=== PATIENT | female | born 1965 | race Caucasian/White ===

== ENCOUNTER → 2016-07-13 | Outpatient (CLI) | payer BC, OTHER ==
[~2016-07-13] MED LIST: EST1 PO; HYDR-5688 PO; OMEG10007 PO; POLYSOL4 OP; PRAV20TA PO; TIZA2CAP PO
[2016-07-13 13:57] LABS: ALT/SGPT 21 U/L (12-78); BLOOD UREA NITROGEN 11 mg/dl (7-18); BUN/CREATININE RATIO 14.5 (10-20); CALCIUM 8.9 mg/dl (8.5-10.1); CARBON DIOXIDE 27 mmol/L (21-32); CHLORIDE 106 mmol/L (98-107); CREATININE 0.73 mg/dl (0.60-1.20); GLUCOSE 77 mg/dl (70-99); POTASSIUM 3.8 mmol/L (3.5-5.1); SODIUM 141 mmol/L (136-145)
[2016-07-13 14:00] LABS: CHOLESTEROL 198 mg/dl (0-200); CHOLESTEROL/HDL RATIO 2.6; HDL CHOLESTEROL 75 mg/dl; LDL CHOLESTEROL CALCULATED 113 mg/dl; TRIGLYCERIDES 52 mg/dl (0-150); VERY LOW DENSITY LIPOPROT CALC 10 mg/dl
== END | disposition home or self-care (01) ==
LOC: C.LABMFLN 07:46
PROVIDERS: ATTEND Family Medicine
DX: E78.5 Hyperlipidemia, unspecified (principal)

== ENCOUNTER 2016-11-13 10:57 | Day surgery (SDC) | payer BC, OTHER ==
[2016-10-14 09:11] VITALS: BMI 27.0
--- NOTE | 2016-10-14 09:38 | PAT Medication Instructions ---
Service Date Oct 14, 2016. Current Home Medication List Estradiol (Estradiol), 1 MG PO QAM Hydrocodone/Acetaminophen 5MG/325MG ([place] 5MG/325MG), 1 TABLET PO q4-6h PRN for Pain Polyethylene Glycol-Propylene (Systane), 1 DROPS OP QID PRN for EYE Pravastatin (Pravachol ), 20 MG PO HS Medication Instructions For Your Scheduled Surgery - Check with surgeon for instructions: Estradiol (Estradiol), 1 MG PO QAM - Take the following medications the morning of surgery with a sip of water: Polyethylene Glycol-Propylene (Systane), 1 DROPS OP QID PRN for EYE (if needed) Hydrocodone/Acetaminophen 5MG/325MG ([place] 5MG/325MG), 1 TABLET PO q4-6h PRN for Pain (okay to take up to 4 hours prior to surgery if needed) - Take the following medications as scheduled the night before surgery: Pravastatin (Pravachol ), 20 MG PO HS Polyethylene Glycol-Propylene (Systane), 1 DROPS OP QID PRN for EYE (if needed) Hydrocodone/Acetaminophen 5MG/325MG ([place] 5MG/325MG), 1 TABLET PO q4-6h PRN for Pain (if needed) If you have any questions please call us at [phone] or [phone] or [phone]
[2016-10-14 10:04] LABS: BASO % 0.1 %; BASO ABS # 0.01 K/uL (0-0.2); COMPLETE YES; EOS % 2.1 %; HEMATOCRIT 42.5 % (37-47); IG% 0.3 %; LYMPH % 24.9 %; LYMPH ABS # 1.69 K/uL (1.2-3.4); MEAN CELL VOLUME 90.8 fL (80-100); MEAN CORPUSCULAR HEMOGLOBIN 30.3 pg (25-34); MEAN CORPUSCULAR HGB CONC 33.4 g/dl (32-36); MEAN PLATELET VOLUME 9.6 fL (7.4-10.4); NEUT % 62.6 %; PLATELET COUNT 191 K/uL (130-400); RED BLOOD COUNT 4.68 M/uL (4.2-5.4)
[2016-10-14 10:06] LABS: URINE APPEARANCE CLEAR (CLEAR); URINE BILIRUBIN NEG (NEG); URINE COLOR YELLOW; URINE NITRITE NEG (NEG); URINE PH 5.5 (4.5-7.5); URINE SPECIFIC GRAVITY 1.015 (1.000-1.030); UROBILINOGEN NEG (NEG)
[2016-10-14 10:07] LABS: MANUAL MICROSCOPIC REQUIRED? NO; REVIEW REQ? NO
[2016-10-14 11:06] LABS: BUN/CREATININE RATIO 17.3 (10-20); CALCIUM 8.9 mg/dl (8.5-10.1); CREATININE 0.72 mg/dl (0.60-1.20)
[~2016-11-13] VITALS: Ht 162.6 cm; Wt 73.2 kg
[~2016-11-13 10:57] MED LIST changes: +CEFAZOLIN 1000MG/55 ML D5W IV SCH; +LACTATED RINGER'S 1000ML 1,000 ML IV SCH; -OMEG10007 PO; -TIZA2CAP PO
[2016-11-13 11:25] VITALS: BP 113/67; PULSE 70; TEMP 36.5; O2SAT 100; Ht 162.6 cm; Wt 73.2 kg
[2016-11-13] MEDS ORDERED: NURSING VERBAL MED ORDER ONE ×2 (11:50→14:30)
[2016-11-13] MEDS ORDERED: SCOPOLAMINE 1.5 MG TDSY TD ONE (11:57)
[2016-11-13] MEDS ORDERED: ATROPINE SULFATE 0.1 MG/ML 5ML SYR IV PRN (12:15)
[2016-11-13] MEDS ORDERED: FENTANYL CITRATE INJ 50 MCG/1 ML 2 ML VIAL IV PRN (12:15)
[2016-11-13] MEDS ORDERED: ONDANSETRON INJ 2 MG/ML 2 ML VIAL IV PRN (12:15)
[2016-11-13] MEDS ORDERED: EpHEDrine SULFATE INJ 50 MG/ML AMP IV PRN (12:15)
[2016-11-13] MEDS ORDERED: MIDAZOLAM HCL 1 MG/ML 2ML VIAL ONE (12:39)
--- NOTE | 2016-11-13 12:48 | History & Physical Bridge Note ---
H&P Re-Evaluation Bridge Note: I have examined the patient, reviewed the History & Physical and in the interval since the performance of the History & Physical I have noted the following changes of clinical significance: No changes noted
--- NOTE | 2016-11-13 12:49 | History and Physical ---
History & Physical Date Nov 13, 2016. Chief Complaint Chronic back pain History of Present Illness The patient is a 51 year old female with complaints of Additional History Hepatic Disease: No Endocrine Disorder: No Kidney Disease: No Hypertension: No Heart Disease: No Bleeding Tendencies: No Infectious Diseases: No Allergies Coded Allergies: Aspirin (Verified Allergy, Intermediate, BLEEDING, 11/13/16) Baclofen (Verified Allergy, Mild, MIGRAINES, 11/13/16) Morphine (Verified Adverse Reaction, Severe, HALLUCINATIONS AND INCREASED BLOOD PRESSURE, 11/13/16) "IT JUST MAKES ME VERY, VERY SICK" Egg (Verified Adverse Reaction, Mild, vomitting, 11/13/16) Fentanyl (Verified Adverse Reaction, Mild, BLOOD PRESSURE DROPPED, 11/13/16) Tramadol (Verified Adverse Reaction, Unknown, TACHY,LOW B/P, 11/13/16) Home Medications Scheduled Estradiol (Estradiol), 1 MG PO QAM Pravastatin (Pravachol ), 20 MG PO HS Scheduled PRN Hydrocodone/Acetaminophen 5MG/325MG ([place] 5MG/325MG), 1 TABLET PO q4-6h PRN for Pain Polyethylene Glycol-Propylene (Systane), 1 DROPS OP QID PRN for EYE Physical Examination Skin: warm/dry, no rash Eyes: normal inspection, EOMI, sclerae normal ENT: normal ENT inspection, pharynx normal Head: normocephalic, atraumatic Neck: supple, no adenopathy, trachea midline Respiratory/Chest: lungs clear, normal breath sounds, no respiratory distress Cardiovascular: regular rate, rhythm, no edema, no murmur Abdomen / GI: normal bowel sounds, non tender Back: normal inspection Extremities: normal inspection, normal range of motion Neurologic/Psych: no motor/sensory deficits, alert, normal reflexes, oriented x 3 Diagnosis Chronic back pain Plan of Treatment Dorsal column stimulator battery replacement
[2016-11-13] MEDS ORDERED: FENTANYL CITRATE INJ 50 MCG/1 ML 2 ML VIAL ONE ×2 (13:22→13:48)
[2016-11-13] MEDS ORDERED: BUPIVACAINE/EPINEPHRINE 0.5% MPF 1:200,000 10 ML VIAL ONE (13:23)
[2016-11-13] MEDS ORDERED: BACITRACIN 50000 UNIT VIAL ONE (13:24)
[2016-11-13] MEDS ORDERED: HYDROmorphone INJ 2 MG/ML SYR/VIAL ONE (13:48)
[2016-11-13] MEDS ORDERED: DEXAMETHASONE SOD INJ 4 MG/ML VIAL ONE (14:05)
[2016-11-13] MEDS ORDERED: ONDANSETRON INJ 2 MG/ML 2 ML VIAL ONE (14:05)
[2016-11-13] MEDS ORDERED: LIDOCAINE HCL 2% 2 ML VIAL (20MG/ML) ONE (14:05)
[2016-11-13] MEDS ORDERED: GLYCOPYRROLATE INJ 0.2 MG/ML VIAL ONE (14:05)
[2016-11-13] MEDS ORDERED: HYDR-5688 PO (14:06)
[2016-11-13] MEDS ORDERED: ROCURONIUM BROMIDE 10 MG/ML 5 ML VIAL ONE (14:06)
[2016-11-13] MEDS ORDERED: NEOSTIGMINE METHYLSULFATE 1 MG/ML 10ML VIAL ONE (14:06)
[2016-11-13] MEDS ORDERED: PROPOFOL IV EMULSION 10 MG/ML 20 ML VIAL IV ONE (14:06)
[2016-11-13] MEDS ORDERED: KETOROLAC TROMETHAMINE 30 MG/ML VIAL ONE (14:06)
--- NOTE | 2016-11-13 14:07 | Discharge Instructions ---
Discharge Instructions Date of Service Nov 13, 2016. Admission Reason for Admission: Sacrolitis Discharge Discharge Diagnosis / Problem: chronic back pain Discharge Goals Goal(s): Improve function Activity Recommendations Activity Limitations: per Instructions/Follow-up section Lifting Limitations: no more than 10 pounds Exercise/Sports Limitations: gradually increase as tolerated Shower/Bathe: may shower/bathe in 3 days . Instructions / Follow-Up Instructions / Follow-Up Follow-up in office in 2 weeks for postoperative incision evaluation. A shower postop day 2 or 3. May remove dressing to shower. Current Hospital Diet Patient's current hospital diet: Discharge Diet Recommended Diet: Regular Diet Procedures Procedures Performed: Dorsal column stimulator battery replacement Pending Studies Studies pending at discharge: no Medical Emergencies . Who to Call and When: Medical Emergencies: If at any time you feel your situation is an emergency, please call 911 immediately. . Non-Emergent Contact Non-Emergency issues call your: Primary Care Provider . "Provider Documentation" section prepared by Kehinde Farrar. . VTE Core Measure Inpt VTE Proph given/why not?: Matheus Khan, SCD's
[2016-11-13] MEDS ORDERED: OXYCODONE HCL IR 5 MG TAB (IMMEDIATE RELEASE) PO PRN (14:15)
[2016-11-13] MEDS ORDERED: ACETAMINOPHEN 325 MG TAB PO PRN (14:15)
[2016-11-13] MEDS ORDERED: HYDROmorphone INJ 1 MG/ML SYR IV PRN (14:15)
[2016-11-13] MEDS ORDERED: MEPERIDINE HCL 25 MG/ML CARP ONE (14:33)
--- NOTE | 2016-11-13 14:33 | [facility] Operative Report ---
Operative Report Operative Date Nov 13, 2016. Pre-Operative Diagnosis Chronic Back Pain Post-Operative Diagnosis Chronic Back Pain Procedure(s) Performed Dorsal column stimulator battery replacement Surgeon Dr. Farrar Living Specialist Surgeon(s) Jesus Jimenez PA-C Estimated Blood Loss 5 cc Findings None Specimens A: explanted stimulator battery Description of Procedure Patient was met with preoperatively case discussed all questions were addressed. That point patient was taken back to the operative suite after undergoing successful intubation placed in a prone position. The lumbar spine was then prepped and draped nostril fashion. Utilizing the previous incision site for the right sided battery. Sharp dissection was performed onto an exposing the battery. It was removed without difficulty. The leads were detached new battery attached and then tested for adequate function. Once this was established. The battery was reinserted into the pocket incision was closed with subcutaneous Vicryl and Monocryl for final skin closure. Steri- Strips sterile dressing was placed. Patient awakened and taken to PACU in stable condition. Please note Alfonzo record was present throughout the entire procedure involved in patient positioning and final skin closure. I attest to the content of the Intraoperative Record and any orders documented therein. Any exceptions are noted below.
--- NOTE | 2016-11-13 15:06 | Anesthesiology Progress Note ---
Anesthesia Post Op Note Date & Time Nov 13, 2016 at 15:06 Vital Signs Pain Intensity: 0 Vital Signs Past 12 Hours Date Time Temp Pulse Resp B/P (MAP) Pulse Ox O2 Delivery O2 Flow Rate FiO2 11/13/16 15:00 37.2 11/13/16 14:53 78 16 11/13/16 14:53 79 16 98 11/13/16 14:48 95 16 97 11/13/16 14:48 97 16 11/13/16 14:45 118/58 11/13/16 14:43 97 16 11/13/16 14:43 99 16 99 11/13/16 14:42 78 16 11/13/16 14:42 78 16 99 11/13/16 14:41 122/69 11/13/16 14:37 98 16 11/13/16 14:37 98 16 99 11/13/16 14:35 114/64 11/13/16 14:32 103 20 95 11/13/16 14:32 100 20 11/13/16 14:31 105/70 11/13/16 14:29 120/75 11/13/16 14:27 101 20 100 11/13/16 14:27 99 20 11/13/16 14:23 108/77 11/13/16 14:22 36.9 96 14 108/77 100 Mask 10 11/13/16 14:22 97 17 100 11/13/16 14:22 97 17 11/13/16 11:25 36.5 70 18 113/67 (82) 100 Room Air Notes Mental Status: alert / awake / arousable, participated in evaluation Pt Amnestic to Procedure: Yes Nausea / Vomiting: adequately controlled Pain: adequately controlled Airway Patency, RR, SpO2: stable & adequate BP & HR: stable & adequate Hydration State: stable & adequate Anesthetic Complications: no major complications apparent
[2016-11-13 15:15] VITALS: BP 119/52; PULSE 66; TEMP 36.4; O2SAT 100
[2016-11-13 15:45] VITALS: BP 99/60; PULSE 72; O2SAT 100
[2016-11-13 16:20] VITALS: BP 108/69; PULSE 89; TEMP 36.6; O2SAT 100
== END 2016-11-13 16:30 | disposition home or self-care (01) ==
LOC: C.ACU 10:57
PROVIDERS: ATTEND Orthopaedic Surgery Orthopaedic Surgery of the Spine
DX: G89.29 Other chronic pain (principal); M54.9 Dorsalgia, unspecified

== ENCOUNTER → 2016-12-16 | Outpatient (CLI) | payer BC, OTHER ==
[~2016-12-16] VITALS: Ht 162.6 cm; Wt 75.0 kg
[~2016-12-16] MED LIST changes: -CEFAZOLIN 1000MG/55 ML D5W IV SCH; -LACTATED RINGER'S 1000ML 1,000 ML IV SCH
[2016-12-16 11:49] VITALS: Ht 162.6 cm; Wt 75.0 kg
--- NOTE | 2016-12-16 12:21 | PAT Medication Instructions ---
Service Date Dec 16, 2016. Current Home Medication List Estradiol (Estradiol), 1 MG PO QAM Hydrocodone/Acetaminophen 5MG/325MG ([place] 5MG/325MG), 1 TABLET PO q4-6h PRN for Pain Polyethylene Glycol-Propylene (Systane), 1 DROPS OP QID PRN for EYE Pravastatin (Pravachol ), 20 MG PO HS Medication Instructions For Your Scheduled Surgery - Take the following medications the morning of surgery with a sip of water OTHERWISE NOTHING TO EAT OR DRINK AFTER MIDNIGHT: Estradiol (Estradiol), 1 MG PO QAM Hydrocodone/Acetaminophen 5MG/325MG ([place] 5MG/325MG), 1 TABLET PO q4-6h PRN for Pain (may take if needed up to 4 hours prior to surgery) Polyethylene Glycol-Propylene (Systane), 1 DROPS OP QID PRN for EYE - Take the following medications as scheduled the night before surgery: Pravastatin (Pravachol ), 20 MG PO HS Polyethylene Glycol-Propylene (Systane), 1 DROPS OP QID PRN for EYE If you have any questions please call us at [phone] or [phone] or [phone]
--- NOTE | 2016-12-16 13:11 | DIAGNOSTIC IMAGING REPORT ---
CHEST 2 VIEWS ROUTINE HISTORY: Preop. COMPARISON: Chest 11/29/2015. FINDINGS: The lungs are clear. Cardiac silhouette is normal in size. No pleural effusions. No pneumothorax. Thoracic spinal electrodes are again noted and unchanged in position. Cholecystectomy. IMPRESSION: No acute process. Electronically signed by: Tee Anders M.D. 12/16/2016 1:09 PM Dictated Date/Time: 12/16/2016 1:05 PM
[2016-12-16 13:33] LABS: BASO % 0.2 %; BASO ABS # 0.01 K/uL (0-0.2); COMPLETE YES; EOS % 3.4 %; IG% 0.2 %; LYMPH % 38.5 %; LYMPH ABS # 2.35 K/uL (1.2-3.4); MEAN CELL VOLUME 91.1 fL (80-100); MEAN CORPUSCULAR HEMOGLOBIN 29.9 pg (25-34); MEAN CORPUSCULAR HGB CONC 32.8 g/dl (32-36); MEAN PLATELET VOLUME 10.2 fL (7.4-10.4); MONO % 7.2 %; NEUT % 50.5 %; PLATELET COUNT 219 K/uL (130-400); RED BLOOD COUNT 4.72 M/uL (4.2-5.4); WHITE BLOOD COUNT 6.11 K/uL (4.8-10.8)
[2016-12-16 13:56] LABS: URINE APPEARANCE CLEAR (CLEAR); URINE BILIRUBIN NEG (NEG); URINE COLOR YELLOW; URINE NITRITE NEG (NEG); URINE PH 5.5 (4.5-7.5); URINE SPECIFIC GRAVITY 1.012 (1.000-1.030); UROBILINOGEN NEG (NEG); ZZUR CULT IF INDIC CLEAN CATCH NO
[2016-12-16 14:05] LABS: BUN/CREATININE RATIO 15.7 (10-20); CALCIUM 9.4 mg/dl (8.5-10.1); CREATININE 0.63 mg/dl (0.60-1.20)
[2016-12-16 14:06] LABS: MANUAL MICROSCOPIC REQUIRED? NO; REVIEW REQ? NO
== END | disposition home or self-care (01) ==
LOC: C.LAB 08:00 → EDSTATUS 01-11 07:45
PROVIDERS: ATTEND Orthopaedic Surgery Orthopaedic Surgery of the Spine
DX: Z01.812 Encounter for preprocedural laboratory examination (principal)

== ENCOUNTER → 2016-12-23 | Outpatient (CLI) | payer BC, OTHER | END | disposition home or self-care (01) | LOC: C.LABMFLN 08:05 | PROVIDERS: ATTEND Family Medicine | DX: R53.83 Other fatigue (principal) ==

== ENCOUNTER → 2017-03-30 | Outpatient (CLI) | payer BC | END | disposition home or self-care (01) | LOC: C.LABMFLN 10:08 | PROVIDERS: ATTEND Family Medicine | DX: R05 Cough (principal) ==

== ENCOUNTER → 2017-04-15 | Outpatient (CLI) | payer BC ==
[2017-04-15 13:11] LABS: BASO % 0.1 %; BASO ABS # 0.01 K/uL (0-0.2); EOS % 4.5 %; EOS ABS # 0.31 K/uL (0-0.5); HEMATOCRIT 41.3 % (37-47); HEMOGLOBIN 14.1 g/dL (12.0-16.0); IG# 0.01 K/uL (0.00-0.02); LYMPH % 32.1 %; LYMPH ABS # 2.22 K/uL (1.2-3.4); MEAN CELL VOLUME 88.2 fL (80-100); MEAN CORPUSCULAR HEMOGLOBIN 30.1 pg (25-34); MEAN CORPUSCULAR HGB CONC 34.1 g/dl (32-36); MEAN PLATELET VOLUME 9.9 fL (7.4-10.4); MONO % 9.1 %; MONO ABS # 0.63 K/uL (0.11-0.59); NEUT % 54.1 %; NEUT ABS # 3.74 K/uL (1.4-6.5); PLATELET COUNT 247 K/uL (130-400); RED CELL DISTRIBUTION WIDTH CV 12.6 % (11.5-14.5); RED CELL DISTRIBUTION WIDTH SD 40.4 fL (36.4-46.3); WHITE BLOOD COUNT 6.92 K/uL (4.8-10.8)
[2017-04-15 14:27] LABS: ALBUMIN 3.4 gm/dl (3.4-5.0); ALKALINE PHOSPHATASE 69 U/L (45-117); ALT/SGPT 32 U/L (12-78); AST/SGOT 26 U/L (15-37); TOTAL PROTEIN 7.8 gm/dl (6.4-8.2)
== END | disposition home or self-care (01) ==
LOC: C.LABMFLN 09:52
PROVIDERS: ATTEND Family Medicine
DX: Z00.00 Encounter for general adult medical examination without abnormal findings (principal); R10.9 Unspecified abdominal pain; R13.10 Dysphagia, unspecified

== ENCOUNTER → 2017-06-23 | Day surgery (SDC) | payer BC ==
[2017-05-17 12:34] VITALS: Ht 162.6 cm; Wt 75.5 kg
[~2017-06-23] VITALS: Ht 162.6 cm; Wt 75.5 kg
[~2017-06-23] MED LIST changes: +ALBU18002 NAE; +DIAZ-165 PO; +FLUT1AER5 INH; +HYDR-3419 PO; -HYDR-5688 PO; +LACTATED RINGER'S 1000ML 1,000 ML IV SCH
== END | disposition home or self-care (01) ==
LOC: EDSTATUS 08:00 → C.PAT 15:59
PROVIDERS: ATTEND Physical Medicine & Rehabilitation
DX: Z53.09 Procedure and treatment not carried out because of other contraindication (principal)

== ENCOUNTER → 2017-07-05 | Outpatient (CLI) | payer BC ==
[~2017-07-05] MED LIST changes: -DIAZ-165 PO; -HYDR-3419 PO; -LACTATED RINGER'S 1000ML 1,000 ML IV SCH
[2017-07-05 13:39] LABS: ALT/SGPT 24 U/L (12-78); BLOOD UREA NITROGEN 10 mg/dl (7-18); CALCIUM 8.7 mg/dl (8.5-10.1); CARBON DIOXIDE 28 mmol/L (21-32); CHOLESTEROL 171 mg/dl (0-200); CREATININE 0.77 mg/dl (0.60-1.20); GLUCOSE 77 mg/dl (70-99); POTASSIUM 3.6 mmol/L (3.5-5.1); SODIUM 139 mmol/L (136-145)
[2017-07-05 13:43] LABS: LDL CHOLESTEROL CALCULATED 95 mg/dl
== END | disposition home or self-care (01) ==
LOC: C.LABMFLN 08:28
PROVIDERS: ATTEND Family Medicine
DX: E78.5 Hyperlipidemia, unspecified (principal)